=== PATIENT | female | born 1950 ===

== ENCOUNTER 2021-06-13 12:42 | Outpatient (CLI) | payer MEDICARE, OTHER, SELFPAY ==
--- NOTE | ~2021-06-13 | MM_ITS ---
EXAMINATION: MM screening donald BI w cass HISTORY: Screening TECHNIQUE: Craniocaudal and mediolateral oblique 3-D tomosynthesis images were obtained and synthetic 2-D images were generated. CAD analysis was submitted and interpreted. COMPARISON: Comparison to multiple prior studies sequentially, with oldest reviewed study dated 06/2016. BREAST PARENCHYMAL COMPOSITION: The breasts are heterogeneously dense, which may obscure small masses . FINDINGS: There is no evidence of suspicious mass, calcification, or architectural distortion to sugg est malignancy in either breast. There has been no suspicious interval change. IMPRESSION: 1. No mammographic evidence of malignancy. 2. Recommend routine screening mammography in one year. BI-RADS Category 1: Negative Reviewed, dictated and finalized at location A. T
== END 2021-06-13 12:43 | disposition home or self-care (01) ==
LOC: ANHIMG 12:45
PROVIDERS: PCP Physician Assistant; Visit Provider Physician Assistant
DX: Z12.31 Encounter for screening mammogram for malignant neoplasm of breast (principal)
CPT/HCPCS: 77063; 77067

== ENCOUNTER 2021-08-15 10:52 | Observation (INO) | payer MEDICARE, OTHER, SELFPAY ==
[2021-08-15] VITALS (12 sets, daily range): BP systolic 139–183; BP diastolic 66–86; PULSE 75–98; RESP 16–20; TEMP 35.9–36.6; O2SAT 95–100; BMI 38.0
--- NOTE | ~2021-08-15 | XR_ITS ---
EXAMINATION: XR chest 2V 08/15/2021 11:20 INDICATION: Chest pain PROCEDURE: 2 view chest COMPARISON: Comparison to multiple prior studies sequentially, with oldest reviewed study dated 01/02. FINDINGS: The lungs are clear. The cardiomediastinal silhouette is within normal limits. There are no pleural effusions. There is no pneumothorax suspected. IMPRESSION: 1: NO ACUTE CARDIOPULMONARY DISEASE. Reviewed, dictated and finalized at location A.
--- NOTE | 2021-08-15 11:10 | ECG_ITS ---
Measurements Intervals [place] Rate: 86 P: 62 OH: 157 QRS: -8 QRSD: 78 T: 39 QT: 334 QTc: 401 Interpretive Statements SINUS RHYTHM POSSIBLE ANTERIOR MYOCARDIAL INFARCTION , PROBABLY OLD [30 ms Q WAVE IN V3/V4, OR R < 0.2 mV IN V4] POSSIBLE INFERIOR MYOCARDIAL INFARCTION , PROBABLY OLD [30 ms Q WAVE IN II/aVF] ABNORMAL ECG NO PREVIOUS ECG AVAILABLE FOR COMPARISON Electronically Signed On 08-15-2021 14:19:15 CDT by Albin Joshi M.D.
--- NOTE | 2021-08-15 11:24 | PC.NURSE ---
Care assumed of pt at this time. States she is s/s free at this time. but earlier had midsternal radiating chest pain.
[2021-08-15] MEDS: ASPIRIN 81 MG CHEWABLE TABLET 324 MG PO (11:32)
--- NOTE | 2021-08-15 11:43 | ED.CHESTPAIN ---
HPI - Chest Pain General Chief Complaint: Chest Pain Stated Complaint: Chest Pain Time Seen by Provider: 08/15/21 11:29 History of Present Illness HPI narrative: 71 y/o female presents to the ER today for complaint of chest pain. She says that the pain is gone now. The pain started around 10am. She says that it lasted about an hour. It was in left chest, heaviness, pressure. It started to radiate to the left shoulder. She felt a little dizzy and had some cold sweats when it started. She says pain resolved shortly after arrival to the ER. She denies any cardiac history. She is treated for HTN, hyperlipidemia and Parkinson's. She does not see a communications systems engineer. No recent stress test. She denies any SOB. No cough or chest congestion. No fever or chills. No nausea, vomiting or diarrhea. Related Data Home Medications Medication Instructions Recorded Confirmed amlodipine 5 mg tablet 5 mg PO DAILY 12/30/19 08/15/21 fenofibric acid (choline) 135 mg 135 mg PO DAILY 12/30/19 08/15/21 capsule,delayed release losartan 100 mg tablet 100 mg PO DAILY 12/30/19 08/15/21 tolterodine 4 mg capsule,extended 4 mg PO DAILY 12/30/19 08/15/21 release 24 hr duloxetine 60 mg capsule,delayed 60 mg PO DAILY 12/29/20 08/15/21 release Allergies Allergy/AdvReac Type Severity Reaction Status Date / Time amoxicillin Allergy Unknown hives Verified 02/14/21 15:04 diazepam Allergy Unknown Abdominal Verified 02/14/21 15:04 Pain lisinopril Allergy Unknown cough Verified 02/14/21 15:04 ropinirole Allergy Unknown confusion Verified 02/14/21 15:04 sulfamethizole Allergy Unknown Irritable Verified 02/14/21 15:04 trimethoprim Allergy Unknown Confusion Verified 02/14/21 15:04 Review of Systems Constitutional: Constitutional: Denies chills, Denies fatigue, Denies fever(s) and Denies weakness Eyes: Eyes: Reports as per HPI ENT: Reports dizziness, Denies nasal congestion and Denies sore throat Cardiovascular: Cardiovascular: Reports chest pain and Reports radiating jaw, neck or arm pain Respiratory: Respiratory: Denies chest congestion, Denies cough, Denies dyspnea and Denies wheezing Gastrointestinal: Gastrointestinal: Denies abdominal pain, Denies diarrhea, Denies nausea and Denies vomiting Genitourinary: Genitourinary: Reports no additional female genitourinary complaints Musculoskeletal: Musculoskeletal: Denies back pain, Denies myalgias and Denies arthralgias Integumentary/Breasts: Skin/Breast: Denies rash Neurologic: Reports dizziness, Denies headache(s), Denies focal weakness, Denies numbness and Denies weakness Psychiatric: Psychiatric: Reports no additional psychiatric complaints Endocrine: Endocrine: Reports no additional endocrine complaints Hematologic/Lymphatic: Hematologic/Lymphatic: Denies easy bleeding and Denies easy bruising Allergic/Immunologic: Allergic/Immunologic: Reports no additional allergic/immunologic complaints PMF Past Medical History Medical History Obstructive sleep apnea Family History Family History Sibling Diabetes mellitus Father Family history of respiratory disorder Family history of dementia Social History Social History Smoking status: Never smoker Alcohol intake: current Exam Const: General: no acute distress and alert Orientation/consciousness: patient oriented x3 HENMT: Head: normal to inspection Eyes: Conjunctivae: conjunctivae normal Pupils: Equal, round and reactive pupils present Neck: Neck: normal visual inspection Chest: Chest palpation & inspection: normal inspection of the chest Resp: Effort & Inspection: normal respiratory effort Auscultation: clear to auscultation bilaterally Cardio: Rate: regular rate Rhythm: regular rhythm GI: Auscultation: normal bowel sounds : General: Yes no C
[2021-08-15 12:17] LABS: Basophils Percent Auto 0.5 % (0.2-1.2); Eosinophils Absolute Auto 0.2 K/mm3 (0-0.3); Eosinophils Percent Auto 2.4 % (0-4.4); Hematocrit 43.6 % (37.0-47.0); Hemoglobin 13.8 g/dL (12.0-15.0); Immature Granulocyte Absolute 0.02 K/mm3 (0.00-0.031); Immature Granulocyte Percent A 0.3 % (0-0.5); Lymphocytes Absolute Auto 1.57 K/mm3 (0.9-3.2); Mean Corpuscular HGB Conc 31.7 g/dl (32-36); Mean Corpuscular Hemoglobin 31.7 pg (26-34); Mean Corpuscular Volume 100.2 fl (80-100); Mean Platelet Volume 10.8 fl (7.4-10.4); Monocytes Absolute Auto 0.4 K/mm3 (0.1-0.6); Monocytes Percent Auto 6.8 % (2.6-8.5); Neutrophils Absolute Auto 4.1 K/mm3 (1.3-6.7); Platelet Count Result 214 k/mm3 (150-375); Red Blood Count 4.35 M/mm3 (4.2-5.4); Red Cell Distribution Width 12.5 % (11.5-14.5); White Blood Count 6.3 K/mm3 (4.5-10.0)
[2021-08-15 12:29] LABS: Alanine Aminotransferase 7 U/L (4-35); Albumin Level 4.3 g/dL (3.5-5.1); Alkaline Phosphatase 60 U/L (38-126); Anion Gap 9 mmol/L (8-16); Aspartate Amino Transferase 31 U/L (14-36); Bilirubin,Total 0.6 mg/dL (0.2-1.3); Blood Urea Nitrogen 19 mg/dL (7-17); Calcium 9.1 mg/dL (8.4-10.2); Carbon Dioxide 22 mmol/L (22-30); Chloride 106 mmol/L (98-107); Estimated CRCL calculation 97 ml/min; Estimated Glomerular Filt Rate > 60; Glucose 127 mg/dL (65-110); Lipase 105 U/L (23-300); Potassium 4.5 mmol/L (3.4-5.0); Sodium 137 mmol/L (137-145)
[2021-08-15 12:40] LABS: Troponin I < 0.012 ng/mL (0.000-0.034)
[2021-08-15 12:51] LABS: INR 0.9; Partial Thromboplastin Time 22.7 SECONDS (22.3-36.8); Prothrombin Time 11.9 Seconds (11.1-14.7)
--- NOTE | 2021-08-15 14:23 | PC.NURSE ---
pt aware of need for admission. unable to obtain IV access at this time. Provider made aware. Vascular drafting technician called for line and lab.
--- NOTE | 2021-08-15 14:46 | PC.NURSE ---
Lab called to call troponin. Still waiting for vascular habilitative interventionist, Provider made aware.
[2021-08-15 15:37] LABS: Troponin I < 0.012 ng/mL (0.000-0.034)
--- NOTE | 2021-08-15 15:45 | PM.IMHP ---
H&P: HPI History of Present Illness Date/Time: 08/15/21 15:45 Chief Complaint: Chest pain. Narrative: This is a very pleasant 71-year-old female with Parkinson's, sleep apnea with use of mandibular advancement device, asthma, interstitial lung disease, hypertension, dyslipidemia, and GERD who presented to the emergency department from home for evaluation of chest pain. She was in her usual state of health when she woke this morning. At about 10:00 she was standing at the kitchen sink filling up a bottle of water when she developed sudden onset of substernal chest pain. She describes a squeezing sensation that radiated to the left side of her neck and the left anterior chest. Associated symptoms included dizziness, cold sweats, and mild shortness of breath. She sat down however the pain intensified and she felt it would be best to come in for evaluation. Not long after arriving to the emergency department her pain subsided without intervention and it has not returned. 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 She has no history of coronary artery disease and she has had 2 negative stress tests in the last decade or so. She denies syncope, presyncope, epigastric and abdominal pain, nausea, vomiting, palpitations, pleuritic pain, orthopnea, paroxysmal nocturnal dyspnea, and edema. Review of Systems Review of Systems: Twelve systems were reviewed and are negative except for as per HPI. [facility] Past Medical History Medical History (Updated 08/15/21 @ 15:14 by Cindy Flores PA-C) Anxiety and depression Arthritis Colorectal carcinoma (2008) Status post right colectomy. Dyslipidemia Gastroesophageal reflux disease Hypertension Interstitial lung disease Obstructive sleep apnea Uses a mandibular advancement device. Parkinsons disease Surgical History Surgical History (Updated 08/15/21 @ 15:11 by Cindy Flores PA-C) History of bilateral cataract extraction (02/2017) History of carpal tunnel release (2007) History of colonoscopy with polypectomy History of lymph node excision (03/05/11) Excision right axillary mass, pathology showed a benign lymph node with fatty replacement. History of open reduction and internal fixation (ORIF) procedure (07/04/17) Right medial malleolus fracture. History of partial colectomy (01/09/09) Right colectomy for polyp at hepatic flexure pathology showing well differentiated colorectal adenocarcinoma invading focally into the submucosa, not involving margins. Family History Family History Sibling Diabetes mellitus Father Dementia Mother Colorectal cancer Cerebrovascular accident Hypertension Social History Social History (Updated 08/15/21 @ 21:40 by Cindy Flores PA-C) Social History: Surrogate decision maker: Viri Tirado, spouse. Code status: Full code. Smoking status: Never smoker Alcohol intake: current Drinks per week: 7 Alcohol use details: The patient drinks 1 whiskey and 7 up most evenings. Substance use: never Additional living arrangements comments: The patient lives with her in [place]. They have no children. 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 Spiritual care concerns: No Meds Home Medications and Allergies Home Medications Medication Instructions Recorded Confirmed Type amlodipine 5 mg tablet 5 mg PO DAILY 12/30/19 08/15/21 History fenofibric acid (choline) 135 mg 135 mg PO DAILY 12/30/19 08/15/21 History capsule,delayed release losartan 100 mg tablet 100 mg PO DAILY 12/30/19 08/15/21 History tolterodine 4 mg capsule,extended 4 mg PO DAILY 12/30/19 08/15/21 History release 24 hr montelukast 10 mg tablet See Rx Instructions .ROUTE 03/21/20 08/15/21 Rx .COMPLEX #90 tablet
--- NOTE | 2021-08-15 18:08 | ADMGEN ---
This patient, Estelle Moore, was admitted to IMU Room 209-01. Patient/family oriented to hospital policies and general routines including ID bracelet, bed and alarms, visiting hours, pain management, procedures, bathroom and other care routines, personal items, smoking policy, room service/diet, and visiting hours. Information on how to activate the Rapid Response Team has been discussed. Patient/Family are encouraged to report perceived risks to care and to ask questions if they do not understand what they are told or what they should do.
[2021-08-15 18:38] LABS: Troponin I < 0.012 ng/mL (0.000-0.034)
[2021-08-15] MEDS: ACETAMINOPHEN 325 MG TABLET 650 MG PO (21:23)
[2021-08-15] MEDS: ENOXAPARIN 40 MG/0.4 ML SYRINGE SUB-Q (21:26)
[2021-08-15] MEDS: CARBIDOPA/LEVODOPA 25/100 MG TABLET 1 TABLET BY MOUTH (22:52)
[2021-08-15] MEDS: amLODIPine BESYLATE 5 MG TABLET PO (22:52)
[2021-08-16] VITALS (16 sets, daily range): BP systolic 149–179; BP diastolic 60–70; PULSE 72–88; RESP 16–18; TEMP 36.1–36.6; O2SAT 95–100
--- NOTE | 2021-08-16 | ECHO_ITS ---
Patient Info Name: Estelle Moore Age: 71 years : 1950 Gender: Female Ht: 64 in Wt: 221 lbs BSA: 2.18 m2 HR: 68 bpm BP: 153 / 69 mmHg Heart Rhythm: Sinus Rhythm Technical Quality: Fair Exam Date: 08/16/2021 3:20 PM Exam Location: [facility] Patient Status: Outpatient Admit Date: 08/15/2021 Staff Ordering Physician: Albin Joshi MD Converting Technician: Nidia Sal RDCS Attending Provider: Vanesa Kelsey MD Referring Physician: Madelyn JACKMAN; Exam Type: CA echo doppler color flow Study Info Indications - cp, abn ecg Complete two-dimensional, color flow and Doppler transthoracic echocardiogram is performed. Summary 1. Complete two-dimensional, color flow and Doppler transthoracic echocardiogram is performed. 2. Left ventricular chamber dimension is normal. 3. Left ventricular systolic function is normal, estimated at 65-70%. 4. There is mildly increased left ventricular wall thickness. 5. Left ventricular septal wall motion is normal. 6. The left ventricular diastolic function is grade I diastolic dysfunction. 7. Mild gradient through the LVOT. 8. There is mild pulmonic regurgitation. Left Ventricle Left ventricular chamber dimension is normal. Left ventricular systolic function is normal, estimated at 65-70%. There is mildly increased left ventricular wall thickness. Left ventricular septal wall motion is normal. The left ventricular diastolic function is grade I diastolic dysfunction. Mild gradient through the LVOT. Right Ventricle Right ventricular chamber dimension is normal. Right ventricular systolic function is normal. Left Atria Left atrial chamber dimension is normal. Right Atria Right atrial chamber dimension is normal. Atrial Septum Intact interatrial septum visualized by color flow imaging. Aortic Valve The aortic valve is trileaflet. There is mild aortic valve sclerosis. There is no aortic valve stenosis. There is trace aortic valve regurgitation. Pulmonic Valve The pulmonic valve is normal. There is no pulmonic valve stenosis. There is mild pulmonic regurgitation. Mitral Valve The mitral valve has calcified annulus. There is no mitral valve stenosis. There is trace mitral valve regurgitation. Tricuspid Valve The tricuspid valve leaflets are normal. There is no significant tricuspid valve stenosis. There is trace tricuspid valve regurgitation. No pulmonary hypertension, estimated pulmonary arterial systolic pressure is 25 mmHg. Pericardium/Pleural The pericardium appears normal. There is no pericardial effusion. Inferior Vena Cava Normal inferior vena cava with >50% collapse upon inspiration consistent with normal right atrial pressure, 10 mmHg. Aorta The aortic root size at the sinus of Valsalva is normal. The prox ascending aorta size is normal. Left Ventricular Outflow Tract Name Value Normal LVOT 2D LVOT Diameter 2.0 cm LVOT Doppler LVOT Peak Gradient 8 mmHg LVOT Mean Gradient 4 mmHg LVOT VTI 29 cm
[2021-08-16 06:54] LABS: Anion Gap 6 mmol/L (8-16); Blood Urea Nitrogen 17 mg/dL (7-17); Carbon Dioxide 26 mmol/L (22-30); Chloride 106 mmol/L (98-107); Cholesterol 150 mg/dL (0-200); Estimated CRCL calculation 82 ml/min; Estimated Glomerular Filt Rate > 60; Glucose 123 mg/dL (65-110); HDL Direct 37 mg/dL; Potassium 3.7 mmol/L (3.4-5.0); Sodium 138 mmol/L (137-145); Triglycerides 252 mg/dL (<150)
[2021-08-16 07:05] LABS: LDL Cholesterol Direct 83 mg/dL
[2021-08-16] MEDS: DULoxetine HCL 60 MG CAPSULE.DR PO (08:29)
[2021-08-16] MEDS: LOSARTAN POTASSIUM 100 MG TABLET PO (08:29)
[2021-08-16] MEDS: TOLTERODINE TARTRATE LA 4 MG CAP.ER.24H PO (08:29)
[2021-08-16] MEDS: MONTELUKAST SODIUM 10 MG TABLET BY MOUTH (08:29)
[2021-08-16] MEDS: ASPIRIN 81 MG ENTERIC TABLET PO (08:29)
[2021-08-16] MEDS: CARBIDOPA/LEVODOPA 25/100 MG TABLET 1 TABLET BY MOUTH ×4 (08:30→20:53)
[2021-08-16] MEDS: amLODIPine BESYLATE 5 MG TABLET PO (08:30)
[2021-08-16] MEDS: FENOFIBRATE NANOCRYSTALLIZED 145 MG TABLET PO (08:54)
--- NOTE | 2021-08-16 11:47 | PM.CNCAR ---
Assessment and Plan Assessment and plan (1) Chest pain: Code(s): R07.9 - Chest pain, unspecified Status: Acute Assessment and Plan: Chest pains concerning for unstable angina. I talked about the risks benefits alternatives of cardiac catheterization versus stress testing. She did rule out for myocardial infarction and her EKG shows no acute ST or T-wave abnormalities but again her symptomatology is concerning. She also has several risk factors for coronary disease. After talking to her, she is agreeable to proceed with coronary angiogram. She wishes to have this done tomorrow. Will keep her NPO after midnight. Catheterization to be performed by Dr. Wolfe. Enoxaparin 1 milligram/kilogram subQ x1. Start metoprolol tartrate 12.5 mg p.o. b.i.d.. Aspirin 81 mg p.o. daily. P.r.n. nitroglycerin and will start atorvastatin 20 mg daily in the she is allergic. 2D echocardiogram Doppler will be ordered and reviewed also. (2) Hypertension: Code(s): I10 - Essential (primary) hypertension Status: Acute Assessment and Plan: Above goal. Continue current meds including losartan, amlodipine. Will add metoprolol also as above (3) Dyslipidemia: Code(s): E78.5 - Hyperlipidemia, unspecified Status: Acute Assessment and Plan: Initiate atorvastatin (4) Obstructive sleep apnea: Code(s): G47.33 - Obstructive sleep apnea (adult) (pediatric) Status: Acute Assessment and Plan: Uses dental appliance (5) Obesity: Code(s): E66.9 - Obesity, unspecified Status: Acute History of Present Illness History of Present Illness Consult date/time: 08/16/21 11:47 Requesting physician: Cindy Flores PA-C Consult reason: chest pain Reason For Visit: Chest Pain Narrative: Date of service 08/16/2021 Reason consultation: Chest pain Requesting provider Cindy Flores History: Patient is a 71-year-old female who has sleep apnea, Parkinson's, asthma, hypertension, hyperlipidemia and GERD. She presented hospital because acute onset of severe chest pain. Patient had acute onset of left-sided anterior chest squeezing which radiated up to left side of her neck. It was associated nausea elevated dizziness and diaphoresis. She was standing at the sink yesterday morning whenever this started. It was severe and she proceeded to come to the emergency department. By the time she got to the emergency department it was improving and had essentially subsided by the time she was evaluated in the ED. Total time of symptoms was about 1 hour and 15 minutes. She has been short of breath with activity but this is not particularly new or different. She had a similar episode of anterior chest discomfort radiating to left side of her neck with similar associated symptoms approximately 1 month ago that woke her up from sleep. That episode lasted about 30 minutes. She has no activity-related symptoms. She has no syncope, presyncope, paroxysmal nocturnal dyspnea, orthopnea, edema or palpitations. EKG has concerns for old inferior and anterior infarctions but no acute ST or T-wave abnormalities and troponins were negative. Review of Systems Review of Systems: All systems reviewed & are unremarkable except as noted in HPI and below Constitutional: Constitutional: Denies weakness Eyes: Eyes: Denies blurry vision ENT: Reports Normal hearing present Cardiovascular: Cardiovascular: Reports chest pain Respiratory: Respiratory: Denies dyspnea Gastrointestinal: Gastrointestinal: Denies abdominal pain Genitourinary: Genitourinary: Denies flank pain Musculoskeletal: Musculoskeletal: Denies neck pain Integumentary/Breasts: Skin/Breast: Denies dry skin Neurologic: Denies headache(s) Psychiatric: Psychiatric: Denies anxiety Endocrine: Endocrine: Denies fatigue Hematologic/Lymphatic: Hematologic/Lymphatic: Denies easy bleeding Allergic/Immunologic: Allergic/Immunologic: Den
--- NOTE | 2021-08-16 13:52 | PM.IMPN ---
Progress Note: A&P Assessment and Plan (1) Chest pain: Code(s): R07.9 - Chest pain, unspecified Status: Acute Assessment and Plan: Pt will be going for heart cath in AM. for chest pain and abnl EKG showing anterior NH likely older NH as serial trops have been negative (2) Hypertension: Code(s): I10 - Essential (primary) hypertension Status: Acute Assessment and Plan: BP slightly high continue to watch pt is on metoprolol, losartan, and norvasc for BP control (3) Parkinsons disease: Code(s): G20 - Parkinson's disease Status: Acute Assessment and Plan: Continue carbidopa levodopa. (4) Obstructive sleep apnea: Code(s): G47.33 - Obstructive sleep apnea (adult) (pediatric) Status: Acute Assessment and Plan: Patient uses a mandibular advancement device. (5) Dyslipidemia: Code(s): E78.5 - Hyperlipidemia, unspecified Status: Acute Assessment and Plan: Continue fenofibrate. Subjective Date/time seen: 08/16/21 13:52 Interval history: 71-year-old female with Parkinson's, sleep apnea with use of mandibular advancement device, asthma, interstitial lung disease, hypertension, dyslipidemia, and GERD who presented to the emergency department from home for evaluation of chest pain. She was in her usual state of health when she woke this morning. At about 10:00 she was standing at the kitchen sink filling up a bottle of water when she developed sudden onset of substernal chest pain. So far pts troponins have been normal but her EKG shows old anterior NH. 08/16 Pt seen by cardiology will be going for heart cath in AM. no further chest pain mentioned. pt never had heart work up before. Review of Systems Review of Systems: All systems reviewed & are unremarkable except as noted in HPI and below Exam Const: General: other (friendly lady slower movements history of parkinsons disease ) Nutritional Appearance: overweight Orientation/consciousness: oriented to person HENMT: Head: normal to inspection Resp: Effort & Inspection: no respiratory distress Auscultation: no rhonchi and no wheezes Cardio: Rate: regular rate Rhythm: regular rhythm GI: Inspection: normal to inspection GI Palp: No abdominal tenderness, No Guarding due to palpation present (GI) and No Hepatomegaly present Auscultation: normal bowel sounds Neuro: General: oriented to person Objective Data Vital Signs Vital Signs: Vital Signs - 24 hr 08/15/21 15:10 08/15/21 17:02 08/15/21 17:53 Temperature Pulse Rate 76 98 78 Respiratory Rate 18 18 18 Blood Pressure 170/72 H 178/72 H Pulse Oximetry 98 98 98 08/15/21 18:00 08/15/21 20:00 08/15/21 21:30 Temperature 35.9 C L 36.4 C L Pulse Rate 81 78 Respiratory Rate 16 20 Blood Pressure 182/66 H 183/86 H 182/66 H Pulse Oximetry 100 97 08/15/21 22:00 08/15/21 23:26 08/16/21 00:00 Temperature 36.3 C L Pulse Rate 93 76 80 Respiratory Rate 18 Blood Pressure 139/73 Pulse Oximetry 97 08/16/21 02:00 08/16/21 04:00 08/16/21 06:00 Temperature 36.1 C L Pulse Rate 76 73 84 Respiratory Rate 16 Blood Pressure 154/70 H Pulse Oximetry 95 08/16/21 08:00 08/16/21 10:00 08/16/21 12:00 Temperature 36.2 C L 36.4 C Pulse Rate 73 76 82 Respiratory Rate 16 18 Blood Pressure 179/66 H 153/69 H Pulse Oximetry 100 100 Intake/Output Intake/Output: Intake & Output 08/13/21 08/14/21 08/15/21 08/16/21 23:59 23:59 23:59 23:59 Intake Total 240 400 Output Total 200 800 Balance 40 -400 Meds/Results Medications: Active Medications Generic Name Dose Route Start Last Admin Trade Name Sanjivq PRN Reason Stop Dose Admin Acetaminophen 650 mg 08/15/21 14:53 08/15/21 21:23 Acetaminophen 325 Mg Tablet PO 650 mg Q4H PRN Administration Mild Pain (1-3) or Fever Albuterol 2 puff 08/15/21 21:52 Albuterol Sulfate (*Sp) Aerosol 1 Puff INHALATION
[2021-08-16] MEDS: ENOXAPARIN 40 MG/0.4 ML SYRINGE SUB-Q (16:49)
--- NOTE | 2021-08-16 20:06 | PCRCNOTE ---
Pt stating that primary doctor has prescribed her Fluticasone, 1 puff every 12 hours. Pt is ordered 2 puffs through hospital. Pt stated she will only be taking 1 puff and was administered only 1 puff.
[2021-08-16] MEDS: METOPROLOL TARTRATE 12.5 MG TABLET PO (20:51)
[2021-08-17] VITALS (17 sets, daily range): BP systolic 132–176; BP diastolic 62–76; PULSE 63–74; RESP 16–141; TEMP 35.7–36.5; O2SAT 94–98
[2021-08-17] MEDS: FENOFIBRATE NANOCRYSTALLIZED 145 MG TABLET PO (08:10)
[2021-08-17] MEDS: LOSARTAN POTASSIUM 100 MG TABLET PO (08:10)
[2021-08-17] MEDS: METOPROLOL TARTRATE 12.5 MG TABLET PO (08:10)
[2021-08-17] MEDS: TOLTERODINE TARTRATE LA 4 MG CAP.ER.24H PO (08:10)
[2021-08-17] MEDS: CARBIDOPA/LEVODOPA 25/100 MG TABLET 1 TABLET BY MOUTH ×2 (08:11→13:53)
[2021-08-17] MEDS: ASPIRIN 81 MG ENTERIC TABLET PO (08:11)
[2021-08-17] MEDS: MONTELUKAST SODIUM 10 MG TABLET BY MOUTH (08:11)
[2021-08-17] MEDS: ATORVASTATIN 20 MG TABLET PO (08:11)
[2021-08-17] MEDS: DULoxetine HCL 60 MG CAPSULE.DR PO (08:11)
[2021-08-17] MEDS: amLODIPine BESYLATE 5 MG TABLET PO (08:11)
--- NOTE | 2021-08-17 11:04 | WPDMODSED ---
Moderate Sedation Note-Pt Data Patient Data Diagnosis: chest pain consistent with myocardial ischemia Present Complaint: chest pain Procedure to be performed/Plan: left heart catheterization Allergies Allergy/AdvReac Type Severity Reaction Status Date / Time amoxicillin Allergy Mild hives Verified 08/15/21 18:26 diazepam Allergy Mild Abdominal Verified 08/15/21 18:26 Pain sulfamethizole Allergy Unknown Gastrointestinal Verified 08/15/21 18:26 Upset lisinopril AdvReac Mild cough Verified 08/15/21 18:26 ropinirole AdvReac Unknown confusion Verified 08/15/21 18:26 trimethoprim AdvReac Unknown Confusion Verified 08/15/21 18:26 Home Medications Medication Instructions Recorded Confirmed Type amlodipine 5 mg tablet 5 mg PO DAILY 12/30/19 08/15/21 History fenofibric acid (choline) 135 mg 135 mg PO DAILY 12/30/19 08/15/21 History capsule,delayed release losartan 100 mg tablet 100 mg PO DAILY 12/30/19 08/15/21 History tolterodine 4 mg capsule,extended 4 mg PO DAILY 12/30/19 08/15/21 History release 24 hr montelukast 10 mg tablet See Rx Instructions .ROUTE 03/21/20 08/15/21 Rx .COMPLEX #90 tablet albuterol sulfate 90 mcg/actuation 2 inh INHALATION Q4-6H PRN #8.5 gm 07/10/20 08/15/21 Rx aerosol inhaler duloxetine 60 mg capsule,delayed 60 mg PO DAILY 12/29/20 08/15/21 History release carbidopa 25 mg-levodopa 100 mg See Rx Instructions .ROUTE 03/26/21 08/15/21 Rx tablet .COMPLEX #360 tablet Qvar RediHaler 40 mcg/actuation See Rx Instructions .ROUTE 06/14/21 08/15/21 Rx HFA breath activated aerosol .COMPLEX #10.6 g NS Current Medications: Active Medications Acetaminophen (Acetaminophen 325 Mg Tablet) 650 mg PO Q4H PRN PRN Reason: Mild Pain (1-3) or Fever Last Admin: 08/15/21 21:23 Dose: 650 mg Documented by: Albuterol (Albuterol Sulfate (*Sp) Aerosol 1 Puff) 2 puff INHALATION Q4-6H PRN PRN Reason: shortness of breath or wheezing Amlodipine Besylate (Amlodipine Besylate 5 Mg Tablet) 5 mg PO DAILY [facility] Last Admin: 08/17/21 08:11 Dose: 5 mg Documented by: Aspirin (Aspirin 81 Mg Enteric Tablet) 81 mg PO QAM [facility] Last Admin: 08/17/21 08:11 Dose: 81 mg Documented by: Atorvastatin Calcium (Atorvastatin 20 Mg Tablet) 20 mg PO DAILY [facility] Last Admin: 08/17/21 08:11 Dose: 20 mg Documented by: Carbidopa/Levodopa (Carbidopa/Levodopa 25/100 Mg Tablet) 1 tablet BY MOUTH 0800,1200,1700,2100 [facility] Last Admin: 08/17/21 08:11 Dose: 1 tablet Documented by: Duloxetine HCl (Duloxetine Hcl 60 Mg Capsule.Dr) 60 mg PO DAILY [facility] Last Admin: 08/17/21 08:11 Dose: 60 mg Documented by: Enoxaparin Sodium (Enoxaparin 40 Mg/0.4 Ml Syringe) 40 mg SUB-Q Q24H [facility] Last Admin: 08/16/21 16:49 Dose: 40 mg Documented by: Fenofibrate (Fenofibrate Nanocrystallized 145 Mg Tablet) 145 mg PO QAM [facility] Last Admin: 08/17/21 08:10 Dose: 145 mg Documented by: Fluticasone Propionate (Fluticasone Prop 44 Mcg Inhaler 1 Puff) 2 puff INHALATION Q12HRT [facility] Last Admin: 08/17/21 07:11 Dose: 2 puff Documented by: Losartan Potassium (Losartan Potassium 100 Mg Tablet) 100 mg PO DAILY [facility] Last Admin: 08/17/21 08:10 Dose: 100 mg Documented by: Metoprolol Tartrate (Metoprolol Tartrate 12.5 Mg Tablet) 12.5 mg PO Q12HR [facility] Last Admin: 08/17/21 08:10 Dose: 12.5 mg Documented by: Montelukast Sodium (Montelukast Sodium 10 Mg Tablet) 10 mg BY MOUTH DAILY [facility] Last Admin: 08/17/21 08:11 Dose: 10 mg Documented by: Perflutren Lipid Microsphere (Perflutren Lipid Microspheres 1.5 Ml Vial Diluted To 10 Ml Total Volume) 0 ml IV PUSH ONCE PRN; Protocol PRN Reason: adequate visualization Tolterodine Tartrate (Tolterodine Tartrate La 4 Mg Cap.Er.24h) 4 mg PO DAILY [facility] Last Admin: 08/17/21 08:10 Dose: 4 mg Documented by: Sedation/Anesthesia: No previous sedation/anesthesia problems (including family history). [facility] Past Medical History Medical History Anxiety
--- NOTE | 2021-08-17 11:20 | PC.NURSE ---
Pt to concrete plant laborer via stretcher. Family at bedside
--- NOTE | 2021-08-17 12:01 | P.PCNCC_ITS ---
Cardiac Cath Procedure Note Date of procedure:: 08/17/21 Performing physician:: Artemio Wolfe MD Indication:: chest pain Brief clinical history:: this is a 71-year-old woman with a history of hypertension admitted to the hospital because of episodes of chest pain concerning for myocardial ischemia. Procedure Procedure performed:: Left ventriculogram coronary angiogram Angio-Seal to right femoral artery Sedation/Medication given:: fentanyl 50 mg start time 11:40 a.m. case end time 11:55 a.m. Access site:: right femoral artery Estimated blood loss:: 20 cc Procedure note:: patient was brought to the cardiac catheterization lab in the postabsorptive state where the right femoral triangle was prepared and draped usual fashion. Anesthesia was provided with 1% lidocaine infiltrated locally. Using modified Seldinger technique a 5 Samoan sheath was placed in the right common femoral artery after this catheterization was carried out. A 5 Samoan pigtail catheter was used to measure left-sided hemodynamics and injected LV- gram in the MILLER projection. Following this standard 5 Samoan FL4 catheter to engage inject the left coronary artery and then 5 Samoan JR4 catheter was used to engage and inject the right coronary artery. The cine angiograms were then reviewed the case was terminated. An angiogram was done femoral artery through the sheath after which an Angio-Seal device was deployed with a good hemostatic result. The patient was stable throughout the procedure was well tolerated the was no evidence of groin upon leaving the laborer plumbing. Findings:: Hemodynamics: Central aortic pressure 152/64. Left ventricle is 152/5 end-diastolic 16. There was no gradient on pullback across the aortic valve. Left ventricle: The LV is normal in size all segments contract well ejection fraction I would visually estimated to be 65% without regional wall motion abnormalities. The left main coronary artery is nicely patent the left anterior descending is a medium caliber artery terminating prior to the apex. The LAD and its branches are smooth and angiographically normal. Circumflex is a very large caliber vessel giving rise to large marginal branches and a large posterior branch. The circumflex is smooth and angiographically Normal. The right coronary artery is large in caliber and dominant to the posterior circulation the RCA is also smooth and angiographically normal. Conclusion:: 1. Right coronary dominant circulation no evidence disease 2. normal left ventricular systolic function 3. based on these findings the patient chest syndrome appears to be noncardiac Artemio Wolfe MD F[facility]
--- NOTE | 2021-08-17 13:42 | SUR.PHASEII ---
Report called to Betzy NASCIMENTO. Pt transported back to floor.
--- NOTE | 2021-08-17 14:14 | PCCCNOTE ---
On 08/17/21, the student, [Alyson Tran], provided care and completed [facility] documentation on this patient. I have reviewed the student's documentation and agree with the findings.
--- NOTE | 2021-08-17 14:17 | PC.NURSE ---
Pt returned from [facility] [employer] labor via stretcher. Family at bedside. Pedal pulse 1+ to palpitation and cath site C/D/I
--- NOTE | 2021-08-17 14:59 | PM.DS ---
DS: Admitting Diagnosis Discharge Date 08/17/2021 Admitting Diagnosis Chest pain DS: Discharge Diagnosis Discharge Diagnosis (1) Chest pain: Code(s): R07.9 - Chest pain, unspecified Status: Acute Assessment and Plan: Chest pain characteristic concerning for angina. Cardiology was consulted Cardiac catheterization was done on 08/17/2021 which came back normal. Chest pain likely noncardiac mostly related to likely superficial disease due to her underlying history of GERD (2) Hypertension: Code(s): I10 - Essential (primary) hypertension Status: Acute Assessment and Plan: BP slightly high continue to watch pt is on metoprolol, losartan, and norvasc for BP control (3) Parkinsons disease: Code(s): G20 - Parkinson's disease Status: Acute Assessment and Plan: Continue carbidopa levodopa. (4) Obstructive sleep apnea: Code(s): G47.33 - Obstructive sleep apnea (adult) (pediatric) Status: Acute Assessment and Plan: Patient uses a mandibular advancement device. (5) Dyslipidemia: Code(s): E78.5 - Hyperlipidemia, unspecified Status: Acute Assessment and Plan: Continue fenofibrate. (6) Gastroesophageal reflux disease: Code(s): K21.9 - Gastro-esophageal reflux disease without esophagitis Status: Inactive Assessment and Plan: Add Pepcid daily DS: Summary Hospital Course Hospital Course: See above Time Spent with Patient Time attestation: Total time spent providing and/or coordinating discharge services: 45 minutes Exam Narrative: Const: General: other (friendly lady slower movements history of parkinsons disease ) Nutritional Appearance: overweight Orientation/consciousness: oriented to person HENMT: Head: normal to inspection, atraumatic Resp: No respiratory distress Auscultation: no rhonchi and no wheezes Cardio: Rate: regular rate Rhythm: regular rhythm GI: Inspection: normal to inspection GI Palp: No abdominal tenderness, No Guarding due to palpation present (GI) and No Hepatomegaly present Auscultation: normal bowel sounds Neuro: General: oriented to person DS: Data Data Completed and Pending Completed studies during hospitalization: Exam Type: CA echo doppler color flow Study Info Indications - cp, abn ecg Complete two-dimensional, color flow and Doppler transthoracic echocardiogram is performed. Summary 1. Complete two-dimensional, color flow and Doppler transthoracic echocardiogram is performed. 2. Left ventricular chamber dimension is normal. 3. Left ventricular systolic function is normal, estimated at 65-70%. 4. There is mildly increased left ventricular wall thickness. 5. Left ventricular septal wall motion is normal. 6. The left ventricular diastolic function is grade I diastolic dysfunction. 7. Mild gradient through the LVOT. 8. There is mild pulmonic regurgitation. Left Ventricle Left ventricular chamber dimension is normal. Left ventricular systolic function is normal, estimated at 65-70%. There is mildly increased left ventricular wall thickness. Left ventricular septal wall motion is normal. The left ventricular diastolic function is grade I diastolic dysfunction. Mild gradient through the LVOT. Right Ventricle Right ventricular chamber dimension is normal. Right ventricular systolic function is normal. Left Atria Left atrial chamber dimension is normal. Right Atria Right atrial chamber dimension is normal. Atrial Septum Intact interatrial septum visualized by color flow imaging. Aortic Valve The aortic valve is trileaflet. There is mild aortic valve sclerosis. There is no aortic valve stenosis. There is trace aortic valve regurgitation. Pulmonic Valve The pulmonic valve is normal. There is no pulmonic valve stenosis. There is mild p
== END 2021-08-17 15:59 | disposition home or self-care (01) ==
LOC: ANHED 15:02 → ANHIMU 17:10
PROVIDERS: Emergency Medicine; Physician Assistant; Specialist; Admitting Provider Family Medicine; Emergency Provider Nurse Practitioner Family; PCP Physician Assistant; Visit Provider Internal Medicine
PROC: 4A023N7 Measurement of Cardiac Sampling and Pressure, Left Heart, Percutaneous Approach (ICD-10-PCS; CPT 93452; principal; 2021-08-17 12:00)
DX: R07.9 Chest pain, unspecified (principal); K21.9 Gastro-esophageal reflux disease without esophagitis; E66.9 Obesity, unspecified; E78.5 Hyperlipidemia, unspecified; G47.33 Obstructive sleep apnea (adult) (pediatric); G20 Parkinson's disease; I10 Essential (primary) hypertension; F41.9 Anxiety disorder, unspecified; F32.A Depression, unspecified; J45.909 Unspecified asthma, uncomplicated; Z98.41 Cataract extraction status, right eye; Z98.42 Cataract extraction status, left eye; Z90.49 Acquired absence of other specified parts of digestive tract; Z68.38 Body mass index [BMI] 38.0-38.9, adult; Z79.899 Other long term (current) drug therapy
CPT/HCPCS: 36415; 71046; 80048; 80053; 80061; 83036; 83690; 83735; 84484; 85025; 85610; 85730; 93005; 93306; 93458; 94640; 96372; 99285; A9270; C1760; C1887; C1894; G0269; G0378; J1644; J1650; J3010; J7040

== ENCOUNTER 2024-06-13 13:13 | Outpatient (CLI) | payer MEDICARE, OTHER, SELFPAY ==
--- NOTE | ~2024-06-13 | MR_ITS ---
EXAMINATION: MR ankle RT wo con DATE: 06/13/2024 14:28 INDICATION: Ankle sprain TECHNIQUE: Magnetic resonance imaging (MRI) of the right ankle was performed without intravenous cont rast. Sequences included sagittal, coronal, and axial proton-density weighted fast spin echo without and with fat saturation. COMPARISON: X-ray right ankle 06/30/2017. FINDINGS: Medial ankle ligaments: Deep and superficial deltoid ligaments as well as the spring ligament are intact. Proximal spring lig ament thickening as can be seen with chronic partial tear. Lateral ankle ligaments: The anterior and posterior inferior tibiofibular ligaments are intact. The anterior talofibular, calc aneofibular and posterior talofibular ligaments are normal. The the ATFL appears mildly thickened, as can be seen with chronic partial tear. Tendons: Achilles tendon is normal. Thickening of the distal aspect of the peroneus longus tendon as can be se en with tendinosis. Small peroneus brevis split type tear. Minimal peroneal tendon tenosynovitis. The tibialis anterior and extensor hallucis longus and extensor digitorum longus tendons are normal. The tibialis posterior, flexor digitorum longus and flexor hallucis longus tendons are normal. Small flu id collection adjacent to the posterior tibial tendon, likely ganglion cyst. Plantar fascia: Thickening of the medial band of the plantar fascia. Mild Achilles and plantar enthesopathy. Bones/other: Severe narrowing and cartilage loss at the tibiotalar articulation. Large anterior osteophytes. Old p osterior malleolus fracture, with an articular surface step-off of approximately 3 mm. Degenerative c hanges also noted at the distal articulation of the tibia and fibula. Fatty atrophy in the distal leg and foot musculature. Screw fixation of a remote medial malleolus fracture, which causes local artif act. Fluid: No significant joint fluid. IMPRESSION: No acute ligamentous injury detected. Chronic ligamentous and tendon findings detailed above. 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 Reviewed, dictated and finalized at location K. [facility] IMPRESSION: No acute ligamentous injury detected. Chronic ligamentous and tendon findings detailed above. Severe degenerative change at the tibiotalar articulation, with an articular mcneil rface step off.
== END 2024-06-13 13:14 | disposition home or self-care (01) ==
PROVIDERS: PCP Physician Assistant; Visit Provider Podiatrist Foot & Ankle Surgery
DX: S93.491D Sprain of other ligament of right ankle, subsequent encounter (principal); M19.071 Primary osteoarthritis, right ankle and foot; X58.XXXD Exposure to other specified factors, subsequent encounter
CPT/HCPCS: 73721

== ENCOUNTER 2025-04-05 13:33 | Outpatient (CLI) | payer MEDICARE, OTHER, SELFPAY ==
--- NOTE | ~2025-04-05 | DEXA_ITS ---
Bone Density Report Name: IVY CASTRO Age: 74 Sex: Female Ethnicity: White Date of : 1950 Indication: postmenopausal; screening for osteoporosis; height loss; cancer; asthma or emphysema; Referring Provider: ABEBA, HAYLEY Study: Bone densitometry was performed. Exam Date: April 05, 2025 Accession number: [id number] Bone Density: Region BMD T-score Z-score Classification AP Spine(L1, L2, L3) 1.143 1.1 3.6 Normal Femoral Neck (Left) 0.731 -1.1 1.1 Osteopenia Total Hip (Left) 1.049 0.9 2.7 Normal Femoral Neck (Right) 0.772 -0.7 1.5 Normal Total Hip (Right) 0.921 -0.2 1.7 Normal Total Hip Mean 0.985 0.4 2.2 Normal World Health Organization criteria for BMD impression classify patients as: Normal (T-score at or above -1.0), Osteopenia (T-score between -1.0 and -2.5), or Osteoporosis (T-score at or below -2.5). 10-year Fracture Risk(1): Major Osteoporotic Fracture 9.7% Hip Fracture 1.6% Reported Risk Factors: [place] (), Neck BMD=0.731, BMI=38.0 (1) FRAX(R) Version 3.08. Fracture probability calculated for an untreated patient. Fracture probability may be lower if the patient has received treatment. Previous Exams: -- Region Exam Age BMD T-score BMD Change BMD Change Date g/cm2 vs Baseline vs Previous -- Total Hip(Left) 04/05/2025 74 1.049 0.9 0.2%# 0.2%# 12/17/2017 67 1.047 0.9 Total Hip(Right) 04/05/2025 74 0.921 -0.2 -9.7%# -9.7%# 12/17/2017 67 1.021 0.6 -- *Denotes significance at 95% confidence level, LSC for Total Hip = 0.027 g/cm2 # Denotes dissimilar scan types or analysis methods Clinical Information Provided by Patient: Has used the following medications: Vitamin D Has the following medical conditions: Asthma or Emphysema, Cancer, colon cancer Patient maximum height was 66 Menopause Age: 52 No regular weight bearing exercise Drinks caffeinated beverages Onset of menses at age 10 Number of children 0 Impression: The patient has low bone mass, based on the Left Femoral Neck T-score. The patient has an estimated ten-year risk of hip fracture of 1.6% and an estimated ten-year risk of major fracture of 9.7%, based on the WHO FRAX algorithm. Unable to evaluate interval change due to the use of different scan modes. Discussion: BONE DENSITY IS LOW AT ONE OR MORE SKELETAL SITES. This patient's lowest T-score is low at one or more skeletal sites. It meets the World Health Organization's (WHO) criteria for ?low bone mass? (T-score between -1.0 and -2.5). The patient's 10-year risk of fracture as calculated by FRAX is less than the threshold where pharmacological therapy is recommended by the National Osteoporosis Foundation (NOF). However, all treatment decisions require clinical judgment and consideration of individual patient factors, including patient preferences, comorbidities, previous drug use, risk factors not captured in the FRAX model (e.g., frailty, falls, vitamin D deficiency, increased bone turnover, interval significant decline in bone density) and possible under or overestimation of fracture risk by FRAX. The patient should follow a healthful lifestyle (good nutrition with adequate calcium and vitamin D, and appropriate weight-bearing exercise). Follow-Up: Consider repeating this study in 2 to 3 years to reassess this patient's status, or sooner if there is some new clinical indication. Reported by: ZACHERY on 04/05/2025 3:21:00 PM. Reviewed, dictated and finalized at location A.
== END 2025-04-05 13:34 | disposition home or self-care (01) ==
LOC: MICIMG 13:34
PROVIDERS: PCP Physician Assistant; Visit Provider Physician Assistant
DX: Z78.0 Asymptomatic menopausal state (principal); M85.852 Other specified disorders of bone density and structure, left thigh
CPT/HCPCS: 77080